=== PATIENT | female | born 1975 | race Caucasian/White ===

== ENCOUNTER 2018-02-11 16:32 | Emergency (ER) | payer MEDICAID, OTHER ==
[~2018-02-11] VITALS: Ht 175.3 cm; Wt 63.5 kg
[~2018-02-11 16:32] MED LIST: CARV3.122 PO; ESOM20CA32 PO; LORA0.5T PO
[2018-02-11] MEDS ORDERED: METO25TA6 PO (16:50)
--- NOTE | 2018-02-11 17:02 | NUR ---
PT IS IN ROOM #1B. DR NASCIMENTO EVALUATED THE PT.
[2018-02-11] MEDS ORDERED: ALBUTEROL SULFATE 2.5 MG/3 ML NEBU NEB ONE (17:15)
[2018-02-11] MEDS ORDERED: ALBUTEROL SULFATE 2.5 MG/3 ML NEBU ONE (17:27)
[2018-02-11 17:44] LABS: BASOPHILS % (AUTO) 0.5 % (0.0-2.0); EOSINOPHILS # (AUTO) 0.1 K/uL (0.0-0.7); HEMATOCRIT 39.1 % (31.2-41.9); HEMOGLOBIN 13.1 g/dL (10.9-14.3); LYMPHOCYTES # (AUTO) 1.7 K/uL (20.0-40.0); MEAN CORPUSCULAR HEMOGLOBIN 28.8 uug (24.7-32.8); MEAN CORPUSCULAR HGB CONC 34 g/dL (32.3-35.6); MEAN CORPUSCULAR VOLUME 85.7 fL (75.5-95.3); MONOCYTES # (AUTO) 0.5 K/uL (2.0-10.0); NEUTROPHILS # (AUTO) 3.9 K/uL (1.8-8.9); NEUTROPHILS % (AUTO) 63.5 % (38.5-71.5); PLATELET COUNT (AUTO) 211 K/uL (179-408); RED BLOOD CELL COUNT(AUTO) 4.56 MIL/uL (3.63-4.92); WHITE BLOOD COUNT (AUTO) 6.2 K/uL (3.8-11.8)
[2018-02-11 17:46] LABS: CREATININE 0.7 mg/dL (0.6-1.3); POTASSIUM 3.4 mmol/L (3.5-5.1)
[2018-02-11 17:58] LABS: BILIRUBIN,TOTAL 0.7 mg/dL (0.2-1.0); TOTAL PROTEIN, SERUM 8.1 g/dL (6.4-8.2)
--- NOTE | 2018-02-11 18:24 | NUR ---
PT WAS D/C TO HOME. D/C INSTRUCTIONS GIVEN TO THE PT.
[2018-02-11 18:28] VITALS: BP 123/72
== END 2018-02-11 18:30 | disposition home or self-care (01) ==
LOC: ER 16:34
DX: R07.9 Chest pain, unspecified (principal); J20.8 Acute bronchitis due to other specified organisms; B96.89 Other specified bacterial agents as the cause of diseases classified elsewhere; E78.00 Pure hypercholesterolemia, unspecified; I10 Essential (primary) hypertension; K21.9 Gastro-esophageal reflux disease without esophagitis; Z79.899 Other long term (current) drug therapy
CPT/HCPCS: 36415; 70030-TC; 71045; 85025; 93005; A4663

== ENCOUNTER 2022-01-15 14:32 | Emergency (ER) | payer OTHER ==
[~2022-01-15] VITALS: Ht 172.7 cm; Wt 49.9 kg
[~2022-01-15 14:32] MED LIST changes: -CARV3.122 PO; +METO25TA6 PO
--- NOTE | 2022-01-15 14:40 | NUR ---
Patient ambulatory, alert and orientedx4 with complaints of flu like symptoms, body ache,sore throat, chills started today. Denies nausea/vomiting,chest pain,SOB. Vitals stable.
--- NOTE | 2022-01-15 14:41 | NUR ---
MD at bedside, medical screening exam in progress.
[2022-01-15] MEDS: ALBUTEROL SULFATE 2.5 MG/3 ML NEBU NEB ONE ×2 (15:00→15:44)
[2022-01-15] MEDS ORDERED: IBUPROFEN 600 MG TABLET PO ONE (15:00)
[2022-01-15] MEDS ORDERED: IV NORMAL SALINE 500 ML BAG IV ONE (15:00)
[2022-01-15 15:09] LABS: HEMATOCRIT 38.9 % (31.2-41.9); MEAN CORPUSCULAR HEMOGLOBIN 27.9 uug (24.7-32.8); MEAN CORPUSCULAR VOLUME 81.9 fL (75.5-95.3); PLATELET COUNT (AUTO) 200 K/uL (179-408)
[2022-01-15] MEDS ORDERED: IBUPROFEN 600 MG TABLET ONE (15:12)
[2022-01-15 15:23] LABS: CREATININE 0.7 mg/dL (0.6-1.3); POTASSIUM 3.5 mmol/L (3.5-5.1)
[2022-01-15] MEDS ORDERED: ALBUTEROL SULFATE 2.5 MG/3 ML NEBU ONE (15:46)
[2022-01-15] MEDS ORDERED: ALBUTEROL SULFATE 8 GM HFA.AER.AD ONE (15:51)
[2022-01-15] MEDS ORDERED: IBUP-1955 PO (15:58)
[2022-01-15] MEDS ORDERED: METH4TAB3 PO (15:58)
[2022-01-15] MEDS ORDERED: ALBU6.7H9 INH (15:58)
[2022-01-15 16:20] VITALS: BP 105/60
--- NOTE | 2022-01-15 16:20 | NUR ---
Right arm sling provided per MD order. Patient discharged to home in stable condition. Written and verbal after care instructions given. Patient verbalizes understanding of instructions. Stressed follow up or return to ER for worsening s/s.
== END 2022-01-15 16:21 | disposition home or self-care (01) ==
LOC: ER 14:33
DX: B34.9 Viral infection, unspecified (principal); Z20.822 Contact with and (suspected) exposure to COVID-19; M77.11 Lateral epicondylitis, right elbow; E05.90 Thyrotoxicosis, unspecified without thyrotoxic crisis or storm; K21.9 Gastro-esophageal reflux disease without esophagitis; E78.00 Pure hypercholesterolemia, unspecified; Z79.899 Other long term (current) drug therapy
CPT/HCPCS: 36415; 71045; 73070; 80048; 85025; 87400; 87426; 96360; 99284; J7040; A4663; J3535

== ENCOUNTER 2022-08-31 19:24 | Emergency (ER) | payer OTHER ==
[~2022-08-31] VITALS: Ht 172.7 cm; Wt 56.7 kg
[~2022-08-31 19:24] MED LIST changes: +ALBU6.7H9 INH; +IBUP-1955 PO; +METH4TAB3 PO
--- NOTE | 2022-08-31 19:41 | NUR ---
Patient placed in hallway on chair due to no beds available in the ER.
[2022-08-31] MEDS ORDERED: ASPIRIN 81 MG TAB.CHEW PO ONE (20:00)
[2022-08-31] MEDS ORDERED: ASPIRIN 81 MG TAB.CHEW ONE (20:02)
[2022-08-31 20:23] LABS: HEMATOCRIT 41.5 % (31.2-41.9); MEAN CORPUSCULAR HEMOGLOBIN 27.6 uug (24.7-32.8); MEAN CORPUSCULAR VOLUME 82.8 fL (75.5-95.3); PLATELET COUNT (AUTO) 281 K/uL (179-408)
[2022-08-31 20:50] LABS: CARBON DIOXIDE 26 mmol/L (21-32); CHLORIDE 105 mmol/L (98-107); CREATININE 0.5 mg/dL (0.6-1.3); GLUCOSE 107 mg/dL (74-106); POTASSIUM 3.6 mmol/L (3.5-5.1); UREA NITROGEN, BLOOD 14 mg/dL (7-18)
--- NOTE | 2022-08-31 22:25 | NUR ---
Patient placed in room 5B with no distress noted.
--- NOTE | 2022-08-31 22:38 | NUR ---
Dr Lam into eval patient.
[2022-08-31] MEDS ORDERED: LORA-259 PO (22:56)
--- NOTE | 2022-08-31 23:15 | NUR ---
IV removed. Catheter intact and site benign. Pressure and 4x4 gauze applied to site. No bleeding noted.
--- NOTE | 2022-08-31 23:20 | NUR ---
Patient discharged to home in stable condition. Written and verbal after care instructions given. Patient verbalizes understanding of instructions. Stressed follow up or return to ER for worsening s/s.
[2022-08-31 23:39] VITALS: BP 105/55
== END 2022-08-31 23:20 | disposition home or self-care (01) ==
LOC: ER 19:28
DX: I47.1 Supraventricular tachycardia (principal); E05.90 Thyrotoxicosis, unspecified without thyrotoxic crisis or storm; K21.9 Gastro-esophageal reflux disease without esophagitis; F41.9 Anxiety disorder, unspecified; Z79.899 Other long term (current) drug therapy
CPT/HCPCS: 36415; 71045; 83735; 84484; 85025; 93005; A4663